=== PATIENT | female | born 1995 ===

== ENCOUNTER 2024-07-26 00:25 | Emergency (ER) | payer MEDICAID, OTHER ==
[~2024-07-26] VITALS: Ht 149.9 cm; Wt 51.7 kg
--- NOTE | 2024-07-26 02:52 | ED.PDOC ---
History of Present Illness HPI Comments 28 y/o F, with a history of anemia and childhood asthma, is BIBA for c/o shortness of breath, chest tightness, he has a congestion and runny nose, and hot flashes. Patient endorses being 21 weeks , currently ( ab 2, miscarriages). Reports on having difficulty breathing, intermittently, for over the past 6 weeks, with recent development of other aforementioned symptoms a week ago. States on calling EMS, today, under advised of nurse help line she called, earlier. Reports pain being 6/10 in severity and describes it being localized in her sternum and underneath her right breast. States unless seeing her research nurse practitioner a month ago but never reported symptoms to them. Denies any recent sick contact. Denies having any further associated symptoms at this time. Chief Complaint: Shortness of Breath Time Seen by MD: 01:00 Reviewed Notes: Nurses Notes, Medications, Allergies Allergies: Coded Allergies: NO KNOWN ALLERGIES (Unverified , 07/26/24) Home Meds Active Scripts Albuterol Sulfate (VENTOLIN MDI) 90 Mcg Ih, 90 MCG IN TIDPRN PRN for 3 Days, #1 INH Prov:ELIAS RODRIGUEZ MD 07/26/24 Information Source: Patient Mode of Arrival: EMS Severity: Moderate Timing: Weeks Duration: Intermittent Prehospital treatment: 12 Lead EKG, Associate Designer Review of Systems: REVIEW OF SYSTEMS: Hot flashes. No fever, no chills, or fatigue HEENT: Nasal congestion. Runny nose. No sore throat, no earache, no neck pain. Cardiac: chest pain. No palpitations. Lungs: shortness of breath, no cough. GI: No nausea, no vomiting, no diarrhea, no constipation, no abdominal pain : No dysuria, frequency, or urgency. No hematuria. Musculoskeletal: No joint pain , no joint swelling, no extremity edema. Skin: No rash, no itching. Neuro: No headache, no dizziness, no weakness Vital Signs Vital Signs Date Time Temp Pulse Resp B/P (MAP) Pulse Ox O2 Delivery O2 Flow Rate FiO2 07/26/24 04:50 22 100 Room Air* 0 21 21 07/26/24 00:47 98.0 80 108/71 (83) 98.0 Physical Exam REVIEW OF SYSTEMS: No fever, no chills, or fatigue HEENT: Nasal congestion. No sore throat, no earache, no neck pain. Cardiac: No chest pain. No palpitations. Lungs: No shortness of breath, no cough. GI: abdomen. No nausea, no vomiting, no diarrhea, no constipation, no abdominal pain : No dysuria, frequency, or urgency. No hematuria. Musculoskeletal: No joint pain , no joint swelling, no extremity edema. Skin: No rash, no itching. Neuro: No headache, no dizziness, no weakness Was a procedure done? Was a procedure done?: No Differential Dx Considerations may include: Differential diagnoses considered include�but are�not limited to acute Bronchitis, Asthma, COPD, Pneumothorax, PE, CHF, Pulmonary HTN, Anemia, CO Poisoning, Methemoglobinemia, Hyperventilation, Metabolic Acidosis, Pulmonary Edema, Pneumonia, ACS, Pericardial Tamponade, Anxiety, other X-Ray, Labs, Meds, VS Vital Signs Date Time Temp Pulse Resp B/P (MAP) Pulse Ox O2 Delivery O2 Flow Rate FiO2 07/26/24 04:50 22 100 Room Air* 0 21 21 07/26/24 00:47 98.0 80 80 108/71 (83) 98 98.0 07/26/24 00:28 84 Lab Test 07/26/24 02:44 07/26/24 02:24 Range/Units B-Type Natriuretic Peptide 45.83 0-100 pg/mL White Blood Count 9.2 4.4-10.8 10^3/uL Red Blood Count 4.00 4.0-5.20 10^6/uL Hemoglobin 12.6 12.2-16.2 g/dL Hematocrit 36.7 36.0-46.0 % Mean Corpuscular Volume 91.8 80.0-100.0 fL Mean Corpuscular Hemoglobin 31.6 28.0-32.0 pg Mean Corpuscular Hemoglobin Concent 34.4 32.0-36.0 g/dL Red Cell Distribution Width 13.4 11.8-14.3 % Platelet Count 235 140-450 10^3/uL Mean Platelet Volume 9.2 6.9-10.8 fL Neutrophils (%) (Auto) 76.3 37.0-80.0 % Lymphocytes (%) (Auto) 13.4 10.0-50.0 % Monocytes (%) (Auto) 7.9 0.0-12.0 % Eosinophils (%) (Auto) 1.8 0.0-7.0 % Basophils (%) (Auto) 0.6 0.0-2.0 % Neutrophils # (Auto) 7.0 1.6-8.6 10 ^3/uL Lymphocytes # (Auto) 1.2 0.4-5.4 10 ^3/uL Monocytes # (Auto) 0.7 0-1.3 10 ^3/uL Eosinophils # (Auto) 0.2 0-0.8 10 ^3/uL Basophils # (Auto) 0.1 0-0.2 10 ^3/uL Nucleated Red Blood Cells 0.0 % D-Dimer, Quantitative 0.66 H 0.0-0.49 mg/L FEU Sodium Level 140 136-145 mmol/L Potassium Level 3.9 3.5-5.1 mmol/L Chloride Level 105 98-107 mmol/L Carbon Dioxide Level 26 20-31 mmol/L Anion Gap 9 5-15 Blood Urea Nitrogen 9 9-23 mg/dL Creatinine 0.52 L 0.550-1.02 mg/dL Glomerular Filtration Rate Calc 130 >90 mL/min BUN/Creatinine Ratio 17.3 10.0-20.0 Serum Glucose 78 74-106 mg/dL Calcium Level 9.7 8.7-10.4 mg/dL Total Bilirubin 0.2 0.2-1.0 mg/dL Aspartate Amino Transferase (AST) 12 L 13-40 U/L Alanine Aminotransferase (ALT) 11 7-40 U/L Alkaline Phosphatase 56 46-116 U/L Troponin I High Sensitivity < 3 L </=34 ng/L Total Protein 6.7 5.7-8.2 g/dL Albumin 4.3 3.2-4.8 g/dL Current Medications Medications (Trade) Dose Ordered Sig/Jayme Route Start Time Stop Time Status Last Admin Albuterol (Ventolin Medneb) 2.5 mg ONCE ONCE NEB 07/26/24 04:30 07/26/24 04:43 DC 07/26/24 04:[address] [address] Ph: [phone] DIAGNOSTIC IMAGING Diagnostic Imaging Report : [id number] Signed PATIENT: SWETHA FONTANEZ ACCT: [id number] UNIT: [id number] : 1995 LOC: ER ROOM / BED: / AGE / SEX: 28 / F ADM STATUS: REG ER SERVICE 4 ORDERING PHYSICIAN: ELIAS RODRIGUEZ MD PROCEDURE(s): CXR1 - CHEST XRAY 1 VIEW REASON: Cough, shortness of breath ORDER NUMBER(s): [id number], ACCESSION NUMBER(s): [id number] CHEST RADIOGRAPH Indication: Cough, shortness of breath Technique: Single frontal view of the chest was obtained COMPARISON: None FINDINGS: Lines and Tubes: None Lungs: Clear Pleura: No effusion. No pneumothorax. Cardiomediastinal contours: Unremarkable Bones: Unremarkable IMPRESSION: 1. No acute disease. ATED BY: ROBERT BEARD MD DICTATED DATE/TIME: 07/26/24303 SIGNED BY: ROBERT BEARD MD SIGNED DATE/TIME: 07/26/24303 CC: [place] [id number] Ph: [phone] DIAGNOSTIC IMAGING Diagnostic Imaging Report : [id number] Signed PATIENT: SWETHA FONTANEZ ACCT: [id number] UNIT: [id number] : 1995 LOC: ER ROOM / BED: / AGE / SEX: 28 / F ADM STATUS: REG ER SERVICE 1 ORDERING PHYSICIAN: ELIAS RODRIGUEZ MD PROCEDURE(s): BLDVT - BiLat Lower DVT REASON: Rule out DVT ORDER NUMBER(s): [id number], ACCESSION NUMBER(s): [id number] Bilateral lower extremity venous duplex Clinical History: Rule out DVT Comparison: None Technique: Duplex Doppler evaluation of the deep venous systems of both lower extremities from the common femoral veins to the popliteal veins including color Doppler and spectral/pulsed waveform analysis was performed. Findings: RIGHT SIDE: The common femoral vein demonstrates appropriate compressibility and waveform variability. There is compressibility/patency of the great saphenous vein at the proximal thigh. The femoral vein demonstrates appropriate compressibility and waveform variability. The deep femoral vein demonstrates appropriate compressibility and waveform variability. The popliteal vein demonstrates appropriate compressibility and waveform variability. There is normal compressibility at the tibioperoneal trunk. LEFT SIDE: The common femoral vein demonstrates appropriate compressibility and waveform variability. There is compressibility/patency of the great saphenous vein at the proximal thigh. The femoral vein demonstrates appropriate compressibility and waveform variability. The deep femoral vein demonstrates appropriate compressibility and waveform variability. The popliteal vein demonstrates appropriate compressibility and waveform variability. There is normal compressibility at the tibioperoneal trunk. Impression: 1. No right or left femoropopliteal venous thrombosis. ATED BY: ROBERT BEARD MD DICTATED DATE/TIME: 07/26/24303 SIGNED BY: ROBERT BEARD MD SIGNED DATE/TIME: 07/26/24303 CC: Time of 1ST Reevaluation: 01:30 Reevaluation 1ST: Unchanged Patient Education/Counseling: Need For Follow Up Family Education/Counseling: No Family Present Departure 1 Departure Time of Disposition: 05:17 Impression: Primary Impression: Shortness of breath Disposition: 01 HOME / SELF CARE / HOMELESS Condition: Stable Additional Instructions: ED DISCHARGE INSTRUCTIONS Instructions: Please read all instructions provided in this packet carefully. Although you have been discharged from the Emergency Department, this does not mean that you have a "clean bill of health". No definitive diagnosis for your symptoms has been made today. It is possible that you are in the process of developing a serious illness. This is why you must return to the ED without fail if any new or worsening symptoms (especially if your symptoms include chest pain, trouble breathing, abdominal pain, fever, headache, confusion, trouble seeing, or trouble walking) It is also very important that you see a primary care doctor within the next 3-5 days to follow up. If you are unable to get an appointment, return to the ED for re-evaluation. SHORTNESS OF BREATH EDUCATION Shortness of breath has many causes. Sometimes conditions such as anxiety can lead to shortness of breath. Some people get mild shortness of breath when they exercise. Trouble breathing also can be a symptom of a serious problem, such as asthma, lung disease, emphysema, heart problems, and pneumonia. If your shortness of breath continues, you may need tests and treatment. Watch for any changes in your breathing and other symptoms. Follow-up care is a byrd part of your treatment and safety. Be sure to make and go to all appointments, and call your doctor if you are having problems. It's also a good idea to know your test results and keep a list of the medicines you take. How can you care for yourself at home? Do not smoke or allow others to smoke around you. If you need help quitting, talk to your doctor about stop-smoking programs and medicines. These can increase your chances of quitting for good. Get plenty of rest and sleep. Take your medicines exactly as prescribed. Call your doctor if you think you are having a problem with your medicine. Find healthy ways to deal with stress. Exercise daily. Get plenty of sleep. Eat regularly and well. When should you call for help? Call 911 anytime you think you may need emergency care. For example, call if: You have severe shortness of breath. You have symptoms of a heart attack. These may include: Chest pain or pressure, or a strange feeling in the chest. Sweating. Shortness of breath. Nausea or vomiting. Pain, pressure, or a strange feeling in the back, neck, jaw, or upper belly or in one or both shoulders or arms. Lightheadedness or sudden weakness. A fast or irregular heartbeat. After you call 911, the flat lock operator may tell you to chew 1 adult-strength or 2 to 4 low-dose aspirin. Wait for an ambulance. Do not try to drive yourself. Call your doctor now or seek immediate medical care if: Your shortness of breath gets worse or you start to wheeze. Wheezing is a high- pitched sound when you breathe. You wake up at night out of breath or have to prop your head up on several pillows to breathe. You are short of breath after only light activity or while at rest. Watch closely for changes in your health, and be sure to contact your doctor if: You do not get better over the next 1 to 2 days. Credits for Shortness of Breath: Care Instructions Current as of: October 14, 2023 Author: [employer] Staff e-Prescriptions Albuterol Sulfate (VENTOLIN MDI) 90 Mcg Ih 90 MCG IN TIDPRN PRN for 3 Days, #1 INH Prov: ELIAS RODRIGUEZ MD 07/26/24 Comments 28-year-old female 21 weeks gestational age. She presents with chest pain, cough, shortness of breath. Patient is not hypoxic on room air. She does not have hemoptysis. Bilateral lower extremity ultrasound is negative for DVT. D-dimer is less than 1000 ng/mL PE ruled out (by YEARS criteria) Patient is afebrile Troponin negative. EKG negative. Chest x-ray negative for acute process. Patient has a history of asthma. Will discharge with a prescription for Ventolin. Patient advised to follow up with primary care provider promptly for further evaluation. Advised to return to the emergency department with any new, worsening or concerning symptoms. Patient did not want to wait for COVID/influenza results. Patient reporting good movement throughout the ED observation. Critical Care Note Critical Care Time?: No Stability Stability form required: No Heart Score Heart Score: Heart Score Response (Comments) Value History N/A 0 EKG N/A 0 Age N/A 0 Risk Factors N/A 0 Troponin N/A 0 Total 0 I personally scribed for ELIAS RODRIGUEZ MD ([email or web address]) on 07/26/24 at 02:52. Electronically submitted by Evan Duffy ([email or web address]). I personally scribed for ELIAS RODRIGUEZ MD ([email or web address]) on 07/26/24 at 04:27. Electronically submitted by Evan Duffy ([email or web address]). ELIAS RODRIGUEZ MD July 26, 2024 02:52
--- NOTE | 2024-07-26 03:06 | DVH ---
CHEST RADIOGRAPH Indication: Cough, shortness of breath Technique: Single frontal view of the chest was obtained COMPARISON: None FINDINGS: Lines and Tubes: None Lungs: Clear Pleura: No effusion. No pneumothorax. Cardiomediastinal contours: Unremarkable Bones: Unremarkable IMPRESSION: 1. No acute disease.
--- NOTE | 2024-07-26 03:07 | DVH ---
Bilateral lower extremity venous duplex Clinical History: Rule out DVT Comparison: None Technique: Duplex Doppler evaluation of the deep venous systems of both lower extremities from the common femora l veins to the popliteal veins including color Doppler and spectral/pulsed waveform analysis was perf ormed. Findings: RIGHT SIDE: The common femoral vein demonstrates appropriate compressibility and waveform variability. There is compressibility/patency of the great saphenous vein at the proximal thigh. The femoral vein demonstrates appropriate compressibility and waveform variability. The deep femoral vein demonstrates appropriate compressibility and waveform variability. The popliteal vein demonstrates appropriate compressibility and waveform variability. There is normal compressibility at the tibioperoneal trunk. LEFT SIDE: The common femoral vein demonstrates appropriate compressibility and waveform variability. There is compressibility/patency of the great saphenous vein at the proximal thigh. The femoral vein demonstrates appropriate compressibility and waveform variability. The deep femoral vein demonstrates appropriate compressibility and waveform variability. The popliteal vein demonstrates appropriate compressibility and waveform variability. There is normal compressibility at the tibioperoneal trunk. Impression: 1. No right or left femoropopliteal venous thrombosis.
[2024-07-26 03:16] LABS: Basophils # (auto) 0.1 10 ^3/uL (0-0.2); Basophils % (auto) 0.6 % (0.0-2.0); Eosinophils # (auto) 0.2 10 ^3/uL (0-0.8); Eosinophils % (auto) 1.8 % (0.0-7.0); Hematocrit 36.7 % (36.0-46.0); Hemoglobin 12.6 g/dL (12.2-16.2); Lymphocytes # (auto) 1.2 10 ^3/uL (0.4-5.4); Lymphocytes % (auto) 13.4 % (10.0-50.0); Mean Corpuscular Hemoglobin 31.6 pg (28.0-32.0); Mean Corpuscular Hgb Conc. 34.4 g/dL (32.0-36.0); Mean Corpuscular Volume 91.8 fL (80.0-100.0); Monocytes # (auto) 0.7 10 ^3/uL (0-1.3); Monocytes % (auto) 7.9 % (0.0-12.0); Neutrophils % (auto) 76.3 % (37.0-80.0); Platelet Count (auto) 235 10^3/uL (140-450); Red Cell Distribution Width 13.4 % (11.8-14.3); White Blood Cell 9.2 10^3/uL (4.4-10.8)
[2024-07-26 03:35] LABS: Alanine Aminotransferase 11 U/L (7-40); Albumin 4.3 g/dL (3.2-4.8); Alkaline Phosphatase 56 U/L (46-116); Anion Gap 9 (5-15); BUN/Creatinine Ratio 17.3 (10.0-20.0); Calcium 9.7 mg/dL (8.7-10.4); Carbon Dioxide 26 mmol/L (20-31); Chloride 105 mmol/L (98-107); Glucose 78 mg/dL (74-106); Potassium 3.9 mmol/L (3.5-5.1); Sodium 140 mmol/L (136-145); Total Protein 6.7 g/dL (5.7-8.2)
[2024-07-26 03:42] LABS: Aspartate Aminotransferase 12 U/L (13-40); Bilirubin, Total 0.2 mg/dL (0.2-1.0); Blood Urea Nitrogen 9 mg/dL (9-23)
[2024-07-26] MEDS: ALBUTEROL SULF 2.5 MG/0.5ML(0.5%) NEB SOLN NEB ONE (04:50)
[2024-07-26] MEDS ORDERED: ALBUAER3 IN (05:18)
[2024-07-26 05:46] VITALS: BP 123/80; PULSE 88; RESP 16; TEMP 98.1; O2SAT 100
--- NOTE | 2024-07-26 07:02 | ECG ---
[facility] Test Date: 2024-07-26 Test Time: 00:28:19 Pat Name: SWETHA FONTANEZ Department: ED Room: Gender: F Jacquard Loom Fixer: PASHA : 1995 Requested By: ELIAS RODRIGUEZ Order Number: [id number] Reading MD: Efrem Ribeiro Measurements Intervals [place] Rate: 84 P: 69 VT: 128 QRS: 77 QRSD: 78 T: 54 QT: 331 QTc: 392 Interpretive Statements Sinus rhythm RSR' in V1 or V2, probably normal variant Electronically Signed On 07-27-2024 12:47:28 PDT by Efrem Ribeiro Please click the below link to view image of tracing.
== END 2024-07-26 05:46 | disposition home or self-care (01) ==
LOC: ER 00:25 → EDBD 00:25 → ER 05:46
DX: O99.512 Diseases of the respiratory system complicating pregnancy, second trimester (principal); O26.892 Other specified pregnancy related conditions, second trimester; R06.02 Shortness of breath; J45.909 Unspecified asthma, uncomplicated; Z3A.21 21 weeks gestation of pregnancy
CPT/HCPCS: 36415; 71045; 80053; 83880; 84484; 85025; 85379; 93005; 93970; 94640